=== PATIENT | male | born 1970 | race Asian ===

== ENCOUNTER 2022-09-11 00:51 | Emergency (ER) | payer BC ==
[~2022-09-11] VITALS: Ht 170.2 cm; Wt 78.9 kg
[2022-09-11 01:33] VITALS: BP 157/104
[2022-09-11] MEDS ORDERED: PENICILLIN G BENZATHINE C-R 1.2 MU/2 ML SYR IM ONE (01:55)
--- NOTE | 2022-09-11 02:19 | NUR ---
52yo M here for antibiotic treatment for syphilis. Pt c history of HIV and colitis. Has generalized red body rash x 1 week. Denies itching, no pain. Diagnosed at a urgent care last week c syphilis. Instructed to come to ED for antibiotic treatment. Denies fever.
--- NOTE | 2022-09-11 03:14 | NUR ---
Cleared to discharge home. Instructions given. Instructed to follow up c PMD. Ambulated out of ED c steady gait. No distress
[2022-09-11 03:15] VITALS: BP 156/107
== END 2022-09-11 03:05 | disposition home or self-care (01) ==
LOC: MED 00:51
DX: A51.49 Other secondary syphilitic conditions (principal)
CPT/HCPCS: 96372; 99283; J0558